=== PATIENT | female | born 2000 | race Caucasian/White ===

== ENCOUNTER → 2022-11-13 08:39 | Outpatient (BNVA) | payer OTHER, SELFPAY | PROVIDERS: PCP Family Medicine; Referring Provider Family Medicine; Visit Provider Nurse Practitioner Women's Health | DX: R10.2 Pelvic and perineal pain (principal); Z12.4 Encounter for screening for malignant neoplasm of cervix | CPT/HCPCS: 84315; 88175 ==

== ENCOUNTER 2023-04-19 09:20 | Emergency (ER) | payer OTHER, SELFPAY ==
[2023-04-19 09:35] VITALS: BP 151/101; PULSE 109; RESP 16; TEMP 37.3; O2SAT 98
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
[2023-04-19] MEDS: ondansetron 4 MG Tablet 8 MG PO (10:08)
[2023-04-19 10:21] VITALS: BP 139/84; PULSE 109; O2SAT 98
== END 2023-04-19 11:15 | disposition home or self-care (01) ==
PROVIDERS: Emergency Provider Emergency Medicine; PCP Family Medicine
DX: S06.0X0A Concussion without loss of consciousness, initial encounter (principal); Y04.2XXA Assault by strike against or bumped into by another person, initial encounter; Y92.239 Unspecified place in hospital as the place of occurrence of the external cause; Y99.0 Civilian activity done for income or pay
CPT/HCPCS: 70450; 70486; 72125; 99284; Q0162

== ENCOUNTER → 2023-12-18 13:25 | Outpatient (BNVA) | payer OTHER, SELFPAY | PROVIDERS: PCP Family Medicine; Visit Provider Podiatrist Foot & Ankle Surgery | DX: M79.672 Pain in left foot (principal); M76.822 Posterior tibial tendinitis, left leg; M72.2 Plantar fascial fibromatosis | CPT/HCPCS: 73630 ==

== ENCOUNTER 2024-02-23 14:00 | Outpatient (CLI) | payer OTHER, SELFPAY | END 2024-02-23 14:01 | disposition home or self-care (01) | LOC: SLEEP 03-09 10:12 | PROVIDERS: PCP Family Medicine; Visit Provider Family Medicine | DX: G47.10 Hypersomnia, unspecified (principal) | CPT/HCPCS: G0399 ==

== ENCOUNTER 2024-04-07 21:10 | Emergency (ER) | payer OTHER, SELFPAY ==
[2024-04-07 21:12] VITALS: BP 139/87; PULSE 91; RESP 24; TEMP 36.9; O2SAT 99; BMI 42.7
--- NOTE | 2024-04-07 21:17 | ECG_ITS ---
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 Measurements Intervals [place] Rate: 86 P: 54 GA: 158 QRS: 28 QRSD: 84 T: 59 QT: 356 QTc: 426 Interpretive Statements SINUS RHYTHM NONSPECIFIC T-WAVE ABNORMALITY No previous ECG available for comparison Electronically Signed On 04-08-2024 22:17:28 PERSONAL SERVICE REPRESENTATIVE by Nicko Abreu M.D. [email or web address]
--- NOTE | 2024-04-07 21:17 | XRR_ITS ---
PROCEDURE INFORMATION: Exam: XR Chest Exam date and time: 04/07/2024 9:39 PM Age: 23 years old Clinical indication: Shortness of breath; Additional info: SOB TECHNIQUE: Imaging protocol: Radiologic exam of the chest. Views: 1 view. COMPARISON: CT cervical spin wo con* [id number] 04/19/2023 9:57 AM FINDINGS: Lungs: Clear. No consolidation. Pleural spaces: No significant pleural effusion. No pneumothorax. Heart/Mediastinum: Within normal limits. No cardiomegaly. Bones/joints: Intact. Other findings: None. XR/XR chest 1V portable [id number] IMPRESSION: No acute findings.
--- NOTE | 2024-04-07 21:18 | W.ED.URI ---
HPI - URI/Sore Throat General: Chief Complaint: Upper Respiratory Infection Stated Complaint: resp distress Time Seen by Provider: 04/07/24 21:12 Source: patient Mode of arrival: EMS Limitations: no limitations History of Present Illness: Patient is a 23-year-old female presents to ED today via EMS after she called them complaining of shortness of breath. She reportedly has a history of asthma. Patient tells me I am sick . She tells me she has had cough and congestion as well as chills and body aches over the past several days. She reportedly tested negative for flu and COVID. She reportedly was given dexamethasone and breathing treatments in row. Upon arrival her vital signs are completely normal. She is hyperventilating/anxious. States her hands and feet are numb. Her lung sounds are completely clear. MD elicited complaint: other (sob) Onset (ago): hour(s) Severity: mild Description of mucous: clear Able to tolerate fluids by mouth: Yes Associated symptoms: Reports chills, chest pain and nasal congestion; Deny abdominal pain, diarrhea, fever(s), headache(s), nausea or vomiting Treatments prior to arrival: other (EMS administered steroids/breathing treatments) Related Data Home Medications ?Medication ?Instructions ?Recorded ?Confirmed acetaminophen 325 mg capsule 325 mg PO QID PRN 11/13/22 03/29/24 (Tylenol) albuterol sulfate 90 mcg/actuation 2 puff inhalation Q6H PRN 11/13/22 03/29/24 aerosol inhaler ibuprofen 200 mg capsule 200 mg PO Q6H PRN 11/13/22 03/29/24 melatonin 10 mg capsule 10 mg PO DAILY 11/13/22 03/29/24 promethazine 25 mg tablet 25 mg PO Q6H PRN 02/26/23 03/29/24 topiramate 25 mg sprinkle capsule 25 mg PO DAILY 02/26/23 03/29/24 (Topamax) Previous Rx's ?Medication ?Instructions ?Recorded segesterone acet 0.15 mg-ethinyl 1 vag ring vaginal ONCE #1 ea 01/22/23 estradiol 0.013 mg/24 hr vaginal ring diclofenac potassium 50 mg tablet 50 mg PO BID PRN pain #20 tabs 04/19/23 ondansetron 8 mg disintegrating 8 mg PO .q6 PRN nausea and 04/19/23 tablet vomiting #14 tabs cyclobenzaprine 10 mg tablet 10 mg PO BID PRN muscle spasm #14 04/22/23 tabs diaphragms, contoured 65 mm-80 mm #1 ea 03/22/24 vaginal (Caya Contoured) metronidazole 0.75 % topical gel 1 applic topical DAILY 5 days #45 03/22/24 grams albuterol sulfate 1.25 mg/3 mL 1.25 mg (3 mL) inhalation Q4H PRN 04/07/24 solution for nebulization shortness of breath or wheezing #75 mL Allergies Allergy/AdvReac Type Severity Reaction Status Date / Time codeine Allergy Mild ADR-Halluci Verified 04/07/24 21:27 nating hydrocodone Allergy Mild ADR-Halluci Verified 04/07/24 21:27 nating latex Allergy Mild ADR-Itching Verified 04/07/24 21:27 oxycodone Allergy Mild ADR-Halluci Verified 04/07/24 21:27 nating Review of Systems Const: Reports: chills and body aches; Denies: fever(s), fatigue or malaise ENMT: Reports: nasal discharge and nasal congestion Card: Reports: chest pain; Denies: palpitations, irregular heart rhythm, edema, swelling of feet/ankles, lightheadedness, syncope, pre-syncope, dyspnea on exertion, orthopnea, leg pain with exertion or acrocyanosis Resp: Reports: dyspnea, non-productive cough and chest congestion GI: Denies: abdominal pain, nausea, vomiting or diarrhea : Denies: flank pain or dysuria Musc: Denies: neck pain, back pain, extremity pain or joint swelling Skin/Breast: Denies: rash Neuro: Denies: headache(s), numbness in extremities, weakness in extremities, sensory changes or dizziness PFS ED PFSH: Medical History Contusion of right lower arm Family History Denies family history of Cervical cancer Ovarian cancer Diabetes Breast cancer Hypertension Uterine cancer Stroke Social History Smoking and tobacco/nicotine status: unknown if used tobacco/nicotine Physical Exam Const: COMMON NORMALS: patient oriented x3, no limitations, alert and well nourished GENERAL APPEARANCE: cooperative NUTRITIONAL APPEARANCE: obese morbidly obese (BMI 42.7) OTHER: hyperventilating HENMT: COMMON NORMALS: normocephalic and atraumatic HEAD & SCALP: normal to inspection, normocephalic and atraumatic FACE & SINUS: normal facial exam Eye: GENERAL EYE: appearance normal, both eyes and all related structures Neck/C-Spine: COMMON NORMALS: full ROM, no lymphadenopathy and no meningeal signs GENERAL: Yes normal visual inspection, No anterior neck swelling and No submandibular swelling Resp: COMMON NORMALS: normal respiratory effort, No retractions, No use of accessory muscles and clear to auscultation bilaterally EFFORT & INSPECTION: Yes tachypneic, No respiratory distress, No labored, No grunting, No stridor, No Actively coughing and No retractions AUSCULTATION: clear to auscultation bilaterally Cardio: COMMON NORMALS: regular rate and regular rhythm RATE: regular rate RHYTHM: regular rhythm Back/Pelvis: COMMON NORMALS: thoracic and lumbar spine normal to inspection and no thoracic nor lumbar tenderness Extremity: GENERAL: Yes normal exam except as noted Neuro: COMMON NORMALS: patient oriented x3, moves all extremities, no focal motor deficits and no sensory deficits noted SENSORIUM/ORIENTATION: Yes alert MENINGEAL SIGNS: Yes no meningeal signs Skin: COMMON NORMALS: no rashes or lesions noted GENERAL SKIN EXAM: no rashes or lesions noted Course Vital Signs: Vital signs: Vital Signs Temperature 98.4 F 04/07/24 21:12 Pulse Rate 91 04/07/24 21:12 Respiratory Rate 24 H 04/07/24 21:12 Blood Pressure 139/87 04/07/24 21:12 Pulse Oximetry 99 04/07/24 21:12 Oxygen Delivery Me thod Room Air 04/07/24 21:12 MDM - URI/Sore Throat Medical Decision Making Patient clinically appears improved during re-examination. Her vitals have remained stable. Her CXR is unremarkable. She was positive for influenza A. She is outside the window for Tamiflu. Discussed conservative therapies at home. She is requesting a refill of her albuterol vials for her nebulizer. This will be provided. Return to ED precautions discussed. Medical Records I reviewed the patient's medical records. Lab Data I reviewed the patient's lab results. Radiology Impressions Chest X-Ray 04/07/24 21:17 IMPRESSION: No acute findings. Laboratory Results Coronavirus (PCR) Negative (Negative) 04/07/24 21:41 Influenza A (PCR) Positive (Negative) 04/07/24 21:41 Influenza Type B (PCR) Negative (Negative) 04/07/24 21:41 RSV (PCR) Negative (Negative) 04/07/24 21:41 All radiology interpretation(s) finalized by discharge Discharge Plan Discharge Patient Disposition: Home Clinical Impression: Influenza A Condition: Stable Prescriptions: New albuterol sulfate 1.25 mg/3 mL solution for nebulization 1.25 mg inhalation Q4H PRN (Reason: shortness of breath or wheezing) Qty: 75 0RF No Action promethazine 25 mg tablet 25 mg PO Q6H PRN topiramate [Topamax] 25 mg capsule, sprinkle 25 mg PO DAILY acetaminophen [Tylenol] 325 mg capsule 325 mg PO QID PRN ibuprofen 200 mg capsule 200 mg PO Q6H PRN melatonin 10 mg capsule 10 mg PO DAILY Patient Comments: at night albuterol sulfate 90 mcg/actuation HFA aerosol inhaler 2 puff inhalation Q6H PRN metronidazole 0.75 % gel 1 applic topical DAILY 5 Days Qty: 45 1RF Rx Instructions: insert pea size intravaginally amount nightly (DME) Caya Contoured 65-80 mm diaphragm See Rx Instructions .Route Qty: 1 0RF Rx Instructions: As directed cyclobenzaprine 10 mg tablet 10 mg PO BID PRN (Reason: muscle spasm) Qty: 14 0RF segesterone ac-ethin estradiol 0.15-0.013 mg/24 hour ring 1 vag ring vaginal ONCE Qty: 1 0RF Rx Instructions: use as directed ondansetron 8 mg tablet,disintegrating 8 mg PO .q6 PRN (Reason: nausea and vomiting) Qty: 14 0RF diclofenac potassium 50 mg tablet 50 mg PO BID PRN (Reason: pain) Qty: 20 0RF Discharge Orders: Discharge ED (Routine); Ordered 04/07/24 Ordered By: Renata Obregon Referrals: Bob Callaway MD [Primary Care Provider] - Patient Instructions: Influenza (DC) Activity Restrictions/Additional Instructions: As we discussed you are positive for influenza A. Your chest x-ray was unremarkable. Your vital signs have been normal. As we discussed, you are outside the window for any benefit from Tamiflu. I have sent a prescription for Albuterol vials for your nebulizers into your pharmacy on file as you have requested. We discussed conservative therapies including Tylenol/Motrin, rest, and hydration. I hope you begin to feel better soon. Print Language: Syriac Coding Level of Care Code ED Sugar Chipper Machine Operator for Adina Brooks
[2024-04-07 22:27] VITALS: BP 123/72; PULSE 84; O2SAT 99
[2024-04-07 22:30] VITALS: BP 116/84; PULSE 94; O2SAT 96
[2024-04-07 22:33] LABS: Covid PCR NEGATIVE (Negative); Influenza A POSITIVE (Negative); Influenza B NEGATIVE (Negative); Respiratory Syncytial Virus Ce NEGATIVE (Negative)
[2024-04-07 23:07] VITALS: BP 116/84; PULSE 92; O2SAT 97
== END 2024-04-07 22:50 | disposition home or self-care (01) ==
PROVIDERS: Emergency Provider Physician Assistant; PCP Family Medicine
DX: J10.1 Influenza due to other identified influenza virus with other respiratory manifestations (principal); Z11.52 Encounter for screening for COVID-19
CPT/HCPCS: 71045; 87637; 93005; 99284

== ENCOUNTER → 2024-04-13 13:26 | Outpatient (BNVA) | payer OTHER, SELFPAY | PROVIDERS: PCP Family Medicine; Visit Provider Nurse Practitioner Women's Health | DX: N92.6 Irregular menstruation, unspecified (principal); N83.8 Other noninflammatory disorders of ovary, fallopian tube and broad ligament; N83.202 Unspecified ovarian cyst, left side; N83.201 Unspecified ovarian cyst, right side | CPT/HCPCS: 76830 ==

== ENCOUNTER 2024-05-04 07:44 | Outpatient (CLI) | payer OTHER, SELFPAY ==
[2024-05-04 08:11] LABS: Basophils # 0.1 10^3/uL (0.0-0.1); Basophils % 0.7 %; Eosinophils # 0.1 10^3/uL (0.0-0.8); Eosinophils % 1.6 %; Lymphocytes # 2.2 10^3/uL (0.8-4.8); Lymphocytes % 28.5 %; Mean Corpuscular HGB Conc 34.4 g/dL (30-55); Mean Corpuscular Hemoglobin 30.3 pg (27-33); Mean Corpuscular Volume 88.2 fl (85-98); Mean Platelet Volume 9.8 fL (7.4-10.4); Monocytes # 0.5 10^3/uL (0.2-0.9); Monocytes % 6.2 %; Neutrophils # 4.74 10^3/uL (1.8-7.7); Neutrophils % 62.7 %; Nucleated Red Blood Cells % 0 %; Platelet Count 308 10^3/cmm (157-399); Red Blood Count 4.42 10^6/uL (3.85-5.65); Red Cell Distribution Width 13.5 % (12.1-15.1); White Blood Count 7.55 10^3/uL (3.29-11.43)
[2024-05-04 08:34] LABS: Alanine Aminotransferase 33 U/L (0-33); Albumin Level 4.5 g/dL (3.5-5.2); Alkaline Phosphatase 72 U/L (35-105); Anion Gap 15.9 (5-19); Aspartate Amino Transferase 18 U/L (0-32); Blood Urea Nitrogen 15 mg/dL (6-20); Calcium 9.2 mg/dL (8.5-10.5); Carbon Dioxide 21 mmol/L (22-29); Chloride 108 mmol/L (98-107); Globulin 2.8 g/dL (1.3-4.6); Glomerular Filtration Rate 87.4 mL/min (90-130); Glucose 108 mg/dL (65-115); Osmolality Calculated 293 mOsm/kg (285-295); Potassium 3.9 mmol/L (3.5-5.1); Sodium 141 mmol/L (136-145); Total Bilirubin 0.2 mg/dL (0.15-1.2); Total Protein 7.3 g/dL (6.6-8.7)
== END 2024-05-04 07:45 | disposition home or self-care (01) ==
LOC: LAB 07:46
PROVIDERS: PCP Family Medicine; Visit Provider Surgery
DX: R10.9 Unspecified abdominal pain (principal); R19.7 Diarrhea, unspecified; K59.09 Other constipation; Z51.81 Encounter for therapeutic drug level monitoring; Z79.1 Long term (current) use of non-steroidal anti-inflammatories (NSAID)
CPT/HCPCS: 36415; 80048; 80076; 82274; 83630; 83993; 85025; 86003; 86008; 87177; 87209

== ENCOUNTER 2024-05-27 08:56 | Day surgery (SDC) | payer OTHER, SELFPAY ==
[2024-05-27 09:19] VITALS: BP 130/83; PULSE 97; RESP 17; TEMP 36.1; O2SAT 96; BMI 41.0
--- NOTE | 2024-05-27 09:19 | W.PM.OPSFHP ---
Same Day Surgery H&P Indication for Procedure/HPI DATE OF PROCEDURE: May 27, 2024 CHIEF COMPLAINT/INDICATIONFOR SURGICAL PROCEDURE: abdominal pain and changes in BM PREOP DIAGNOSIS: abdominal pain and changes in BM PLANNED PROCEDURE: Operation Date: 05/27/24 10:10 Proposed Procedures p [id number] K21.9 K52.9(Not Applicable) - Aaron Zepeda MD s Colonoscopy(Not Applicable) - Aaron Zepeda MD Medications/Allergies* Home Medications ?Medication ?Instructions ?Recorded ?Confirmed ?Type acetaminophen 325 mg capsule 325 mg PO QID PRN pain or fever 11/13/22 05/24/24 History (Tylenol) albuterol sulfate 90 mcg/actuation 2 puff inhalation Q6H PRN 11/13/22 05/24/24 History aerosol inhaler Shortness Of Breath ibuprofen 200 mg capsule 200 mg PO Q6H PRN pain or fever 11/13/22 05/24/24 History promethazine 25 mg tablet 25 mg PO Q6H PRN Nausea And 02/26/23 05/24/24 History Vomiting topiramate 25 mg sprinkle capsule 50 mg PO DAILY 02/26/23 05/24/24 History (Topamax) famotidine 20 mg tablet 40 mg PO DAILY 04/26/24 05/24/24 History hydroxyzine HCl 50 mg tablet 50 mg PO QID PRN Anxiety 04/26/24 05/24/24 History prazosin 1 mg capsule 1 mg PO DAILY 04/26/24 05/24/24 History trazodone 50 mg tablet 50 mg PO DAILY 04/26/24 05/24/24 History venlafaxine 225 mg tablet,extended 225 mg PO DAILY 04/26/24 05/24/24 History release 24 hr metronidazole 0.75 % topical gel 1 applic topical DAILY 05/24/24 05/24/24 History ([place]) Allergies/Adverse Reactions Allergy/AdvReac Type Severity Reaction Status Date / Time codeine Allergy Mild ADR-Halluci Verified 05/27/24 09:11 nating hydrocodone Allergy Mild ADR-Halluci Verified 05/27/24 09:11 nating latex Allergy Mild ADR-Itching Verified 05/27/24 09:11 oxycodone Allergy Mild ADR-Halluci Verified 05/27/24 09:11 nating walnut Allergy oral sores Verified 05/27/24 09:11 Pertinent History/Comorbid Conditions* Medical History (Updated 04/26/24 @ 09:23 by Caryl Dunham NP) Contusion of right lower arm Family History (Updated 11/27/22 @ 08:25 by Citlalli Medellin CMA) Denies family history of Cervical cancer Ovarian cancer Diabetes Breast cancer Hypertension Uterine cancer Stroke Social History Smoking and tobacco/nicotine status: never used tobacco/nicotine Alcohol intake: never Pertinent Exam Findings alert, oriented x 3, clear to auscultation bilaterally and regular rate & rhythm Recommendations Surgery/Procedure today Coding Level of Care Code Acute Code for Chg Fwd
--- NOTE | 2024-05-27 09:25 | ANES.PREANE2 ---
Pre-Anesthetic Assessment Height/Weight: Height 5 ft 1 in Preop Diagnosis: abdominal pain and changes in BM Operation Date: 05/27/24 10:10 Proposed Procedures p [id number] K21.9 K52.9(Not Applicable) - Aaron Zepeda MD s Colonoscopy(Not Applicable) - Aaron Zepeda MD Was Beta Hansa taken within 24 hours: N/A Was Clonidine taken within 24 hours: N/A Social No alcohol and No tobacco Exam alert, oriented x 3, clear to auscultation bilaterally and regular rate & rhythm Airway Submandibular: within normal limits Cervical ROM: within normal limits Mallampati: Class II Dentition: full Anesthetic Plan ASA status: 3 Anesthesia: General Other: No prior issues with anesthesia Completed bowel prep History of asthma, occasional rescue inhaler BMI 41 Labs 05/04/2024 reviewed acceptable for procedure EKG sinus rhythm with nonspecific T wave abnormality METs greater than 4 Plan for MAC anesthesia Medications/Allergies Home Medications ?Medication ?Instructions ?Recorded ?Confirmed ?Last Taken ?Type acetaminophen 325 mg capsule 325 mg PO QID PRN pain or fever 11/13/22 05/27/24 05/26/24 History (Tylenol) albuterol sulfate 90 mcg/actuation 2 puff inhalation Q6H PRN 11/13/22 05/27/24 Unknown History aerosol inhaler Shortness Of Breath ibuprofen 200 mg capsule 200 mg PO Q6H PRN pain or fever 11/13/22 05/27/24 Unknown History promethazine 25 mg tablet 25 mg PO Q6H PRN Nausea And 02/26/23 05/27/24 05/26/24 History Vomiting topiramate 25 mg sprinkle capsule 50 mg PO DAILY 02/26/23 05/27/24 05/26/24 History (Topamax) diaphragms, contoured 65 mm-80 mm #1 ea 03/22/24 04/27/24 Unknown Rx vaginal (Caya Contoured) albuterol sulfate 1.25 mg/3 mL 1.25 mg (3 mL) inhalation Q4H PRN 04/07/24 05/27/24 Unknown Rx solution for nebulization shortness of breath or wheezing #75 mL famotidine 20 mg tablet 40 mg PO DAILY 04/26/24 05/27/24 05/26/24 History hydroxyzine HCl 50 mg tablet 50 mg PO QID PRN Anxiety 04/26/24 05/27/24 05/26/24 History prazosin 1 mg capsule 1 mg PO DAILY 04/26/24 05/27/24 05/26/24 History trazodone 50 mg tablet 50 mg PO DAILY 04/26/24 05/27/24 05/26/24 History venlafaxine 225 mg tablet,extended 225 mg PO DAILY 04/26/24 05/27/24 05/26/24 History release 24 hr polyethylene glycol 3350 17 17 g PO DAILY 30 days #238 grams 04/27/24 05/27/24 05/24/24 Rx gram/dose oral powder (Miralax) metronidazole 0.75 % topical gel 1 applic topical DAILY 05/24/24 05/27/24 Unknown History (Rosadan) Allergies Allergy/AdvReac Type Severity Reaction Status Date / Time codeine Allergy Mild ADR-Halluci Verified 05/27/24 09:11 nating hydrocodone Allergy Mild ADR-Halluci Verified 05/27/24 09:11 nating latex Allergy Mild ADR-Itching Verified 05/27/24 09:11 oxycodone Allergy Mild ADR-Halluci Verified 05/27/24 09:11 nating walnut Allergy oral sores Verified 05/27/24 09:11 [facility] Anesthesia Medical History Contusion of right lower arm Family History Denies family history of Cervical cancer Ovarian cancer Diabetes Breast cancer Hypertension Uterine cancer Stroke Social History (Updated 04/27/24 @ 07:54 by NIKO Del Rosario) Smoking and tobacco/nicotine status: never used tobacco/nicotine Alcohol intake: never Data Anesthesia Cardiac Studies: No Data to Display
[2024-05-27 09:27] LABS: OR HCG Qualitative Urine Negative (Negative)
[2024-05-27] MEDS: sodium chloride 0.9% 1,000 ML 30 ML IV (09:28)
[2024-05-27 10:58] VITALS: BP 95/58; PULSE 70; RESP 18; TEMP 36.1; O2SAT 97
[2024-05-27 11:32] VITALS: BP 126/81; PULSE 78; RESP 18; O2SAT 98
--- NOTE | 2024-05-27 11:36 | ANE.PACU2 ---
Inpatient post-anesthesia follow up: Airway intact: Yes Vital signs: Temperature 97.0 F Pulse Rate 78 Respiratory Rate 18 Blood Pressure 126/81 Pulse Oximetry 98 Oxygen Delivery Me thod Room Air Oxygen Flow Rate Fraction of Inspir ed Oxygen Hydration adequate: Yes Nausea and vomiting: No Pain level: 1 Mental status: Baseline
== END 2024-05-27 11:36 | disposition home or self-care (01) ==
PROVIDERS: Student in an Organized Health Care Education/Training Program; PCP Family Medicine; Visit Provider Surgery
PROC: 0DJ08ZZ Inspection of Upper Intestinal Tract, Via Natural or Artificial Opening Endoscopic (ICD-10-PCS; principal; 2024-05-27 10:10)
PROC: 0DJD8ZZ Inspection of Lower Intestinal Tract, Via Natural or Artificial Opening Endoscopic (ICD-10-PCS; CPT 45378; 2024-05-27 10:10)
DX: K29.00 Acute gastritis without bleeding (principal); K21.00 Gastro-esophageal reflux disease with esophagitis, without bleeding; K52.9 Noninfective gastroenteritis and colitis, unspecified; Z79.899 Other long term (current) drug therapy; Z88.5 Allergy status to narcotic agent; Z91.040 Latex allergy status
CPT/HCPCS: 43239; 45380; 81025; 88305; J2704; J7030; J9999

== ENCOUNTER 2024-08-02 17:06 | Emergency (ER) | payer OTHER, SELFPAY ==
[2024-08-02] VITALS (7 sets, daily range): BP systolic 108–145; BP diastolic 66–80; PULSE 73–99; RESP 16; TEMP 36.9; O2SAT 96–100; BMI 41.5
[2024-08-02] MEDS: ondansetron 2 mg/ML SDV 2 mL 4 MG IVP (19:36)
[2024-08-02] MEDS: sodium chloride 0.9% 1,000 ML 999 ML IV (19:36)
--- NOTE | 2024-08-02 19:48 | ECG_ITS ---
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 Measurements Intervals Arena Rate: 79 P: 7 WI: 141 QRS: 21 QRSD: 85 T: 8 QT: 387 QTc: 446 Interpretive Statements SINUS RHYTHM LOW QRS VOLTAGE IN PRECORDIAL LEADS [QRS DEFLECTION < 1.0 mV IN CHEST LEADS] Compared to ECG 04/07/2024 21:43:00 Low QRS voltage now present T-wave abnormality no longer present Electronically Signed On 08-03-2024 11:35:27 CDT by Nicko Abreu M.D. [email or web address]
[2024-08-02 19:57] LABS: Basophils # 0.1 10^3/uL (0.0-0.1); Basophils % 0.5 %; Eosinophils # 0.1 10^3/uL (0.0-0.8); Eosinophils % 0.5 %; Hematocrit 44.7 % (36-47); Lymphocytes % 23.3 %; Mean Corpuscular HGB Conc 32.2 g/dL (30-55); Mean Corpuscular Hemoglobin 29.3 pg (27-33); Monocytes # 0.8 10^3/uL (0.2-0.9); Monocytes % 5.8 %; Neutrophils # 9.08 10^3/uL (1.8-7.7); Neutrophils % 69.5 %; Nucleated Red Blood Cells % 0 %; Platelet Count 364 10^3/cmm (157-399); Red Blood Count 4.91 10^6/uL (3.85-5.65); Red Cell Distribution Width 13.4 % (12.1-15.1); White Blood Count 13.04 10^3/uL (3.29-11.43)
--- NOTE | 2024-08-02 20:10 | W.ED.DIZZY ---
HPI - Dizziness General: Chief Complaint: Dizziness Stated Complaint: nausea, lightheaded x4days, unbalanced, dizzy Time Seen by Provider: 08/02/24 19:31 History of Present Illness: HPI Narrative: Patient is a generally well-appearing 23-year-old female seen for 3 days of lightheadedness and nausea which appear to be worse with motion of the head. She denies antecedent upper respiratory infection, sinus pressure, ear pain, nasal congestion, or cough. She has had similar symptoms in the past which got better with meclizine and her primary care gave her meclizine but they did not help this time. There are no other sick contacts at home. She states that she has tried to stay well-hydrated but is hard to do so when she feels nauseated all the time. She has not lost consciousness nor has she vomited. She denies abdominal pain in excess of her normal pain that she feels with IBS. She denies dysuria, frequency, diarrhea, constipation, and states that she had a period last week and does not feel that she is . She was prompted to come to the emergency department when meclizine failed and primary care asked her to come be evaluated. She has no history of cardiac disease of which she is aware. Related Data Home Medications ?Medication ?Instructions ?Recorded ?Confirmed acetaminophen 325 mg capsule 325 mg PO QID PRN pain or fever 11/13/22 05/27/24 (Tylenol) albuterol sulfate 90 mcg/actuation 2 puff inhalation Q6H PRN 11/13/22 05/27/24 aerosol inhaler Shortness Of Breath promethazine 25 mg tablet 25 mg PO Q6H PRN Nausea And 02/26/23 05/27/24 Vomiting topiramate 25 mg sprinkle capsule 50 mg PO DAILY 02/26/23 05/27/24 (Topamax) hydroxyzine HCl 50 mg tablet 50 mg PO QID PRN Anxiety 04/26/24 05/27/24 prazosin 1 mg capsule 1 mg PO DAILY 04/26/24 05/27/24 trazodone 50 mg tablet 50 mg PO DAILY 04/26/24 05/27/24 venlafaxine 225 mg tablet,extended 225 mg PO DAILY 04/26/24 05/27/24 release 24 hr metronidazole 0.75 % topical gel 1 applic topical DAILY 05/24/24 05/27/24 (Rosadan) Previous Rx's ?Medication ?Instructions ?Recorded diaphragms, contoured 65 mm-80 mm #1 ea 03/22/24 vaginal (Caya Contoured) albuterol sulfate 1.25 mg/3 mL 1.25 mg (3 mL) inhalation Q4H PRN 04/07/24 solution for nebulization shortness of breath or wheezing #75 mL polyethylene glycol 3350 17 17 g PO DAILY 30 days #238 grams 04/27/24 gram/dose oral powder (Miralax) pantoprazole 40 mg tablet,delayed 40 mg PO BID #60 tabs 05/27/24 release diazepam 2 mg tablet (Valium) 1 mg (1/2 x 2 mg) PO TID PRN 08/02/24 dizziness #14 tabs Allergies Allergy/AdvReac Type Severity Reaction Status Date / Time codeine Allergy Mild ADR-Halluci Verified 05/27/24 09:11 nating hydrocodone Allergy Mild ADR-Halluci Verified 05/27/24 09:11 nating latex Allergy Mild ADR-Itching Verified 05/27/24 09:11 oxycodone Allergy Mild ADR-Halluci Verified 05/27/24 09:11 nating walnut Allergy oral sores Verified 05/27/24 09:11 [facility] ED PFSH: Medical History Contusion of right lower arm Family History Denies family history of Cervical cancer Ovarian cancer Diabetes Breast cancer Hypertension Uterine cancer Stroke Social History (Updated 04/27/24 @ 07:54 by NIKO Del Rosario) Smoking and tobacco/nicotine status: never used tobacco/nicotine Alcohol intake: never Physical Exam Const: COMMON NORMALS: no acute distress, patient oriented x3 and alert HENMT: OTHER: Normal inspection of the ears, nose, and throat. Dizziness is significantly worse with any motion of the head or eyes. Dizziness fatigues rapidly when she stops moving her head and closes her eyes Eye: COMMON NORMALS: Equal, round and reactive pupils present, EOMs intact bilaterally and no scleral icterus PUPIL: Yes Equal, round and reactive pupils present Resp: COMMON NORMALS: normal respiratory effort and No retractions Cardio: COMMON NORMALS: regular rate, regular rhythm and No murmurs present (Cardio) RATE: regular rate RHYTHM: regular rhythm GI: COMMON NORMALS: Normal to inspection, nondistended, normoactive bowel sounds present, Soft to palpation and non-tender PALPATION: Yes Soft to palpation Neuro: COMMON NORMALS: patient oriented x3 SENSORIUM/ORIENTATION: Yes alert Skin: COMMON NORMALS: no rashes or lesions noted GENERAL SKIN EXAM: no rashes or lesions noted Course Vital Signs: Vital signs: Vital Signs Temperature 98.4 F 08/02/24 17:14 Pulse Rate 81 08/02/24 23:53 Respiratory Rate 16 08/02/24 17:14 Blood Pressure 119/73 08/02/24 23:53 Pulse Oximetry 98 08/02/24 23:53 Oxygen Delivery Me thod Room Air 08/02/24 22:00 MDM - Dizziness Medical Decision Making Patient remained hemodynamically stable 30 course. EKG and labs are reassuring. Valium made her very sleepy but also considerably improved her BPPV symptoms. She is now able to walk without difficulty. I do not suspect central etiology to her dizziness nor I feel imaging would be beneficial at this time. She will be given a very short course of Valium for home and several days off of work. She shows good understanding and agrees to the plan and will be discharged in stable condition Lab Data 08/02/24 19:31 08/02/24 20:23 Laboratory Results WBC 13.04 10^3/uL (3.29-11.43) H 08/02/24 19:31 RBC 4.91 10^6/uL (3.85-5.65) 08/02/24 19:31 Hgb 14.40 g/dL (11.27-16.99) 08/02/24 19:31 Hct 44.7 % (36-47) 08/02/24 19:31 MCV 91.0 fl (85-98) 08/02/24 19:31 MCH 29.3 pg (27-33) 08/02/24 19:31 MCHC 32.2 g/dL (30-55) 08/02/24 19:31 RDW 13.4 % (12.1-15.1) 08/02/24 19:31 Plt Count 364 10^3/cmm (157-399) 08/02/24 19:31 MPV 10.0 fL (7.4-10.4) 08/02/24 19:31 Neut % (Auto) 69.5 % 08/02/24 19:31 Lymph % (Auto) 23.3 % 08/02/24 19:31 Nuckolls % (Auto) 5.8 % 08/02/24 19: Eos % (Auto) 0.5 % 08/02/24 19: Baso % (Auto) 0.5 % 08/02/24 19: Neut # (Auto) 9.08 10^3/uL (1.8-7.7) H 08/02/24 19: Lymph # (Auto) 3.0 10^3/uL (0.8-4.8) 08/02/24 19: N[place]olls # (Auto) 0.8 10^3/uL (0.2-0.9) 08/02/24 19: Eos # (Auto) 0.1 10^3/uL (0.0-0.8) 08/02/24: Baso # (Auto) 0.1 10^3/uL (0.0-0.1) 08/02/24: Nucleated RBC % (auto) 0 % 08/02/24: Nucleated RBCs # 0.0 /100WBC 08/02/24 19: Sodium 139 mmol/L (136-145) 08/02/24 20:23 Potassium 4.0 mmol/L (3.5-5.1) 08/02/24 20:23 Chloride 108 mmol/L (98-107) H 08/02/24 20:23 Carbon Dioxide 21 mmol/L (22-29) L 08/02/24 20:23 Anion Gap 14.0 (5-19) 08/02/24 20:23 BUN 13 mg/dL (6-20) 08/02/24 20:23 Creatinine 0.7 mg/dL (0.5-0.9) 08/02/24 20:23 GFR Calculation 102.0 mL/min (90-130) 08/02/24 20:23 Glucose 82 mg/dL (65-115) 08/02/24 20:23 Calculated Osmolality 287 mOsm/kg (285-295) 08/02/24 20:23 Calcium 8.6 mg/dL (8.5-10.5) 08/02/24 20:23 Total Bilirubin 0.2 mg/dL (0.15-1.2) 08/02/24 20:23 AST 23 U/L (0-32) 08/02/24 20:23 ALT 38 U/L (0-33) H 08/02/24 20:23 Alkaline Phosphatase 67 U/L (35-105) 08/02/24 20:23 Total Protein 7.1 g/dL (6.6-8.7) 08/02/24 20:23 Albumin 4.0 g/dL (3.5-5.2) 08/02/24 20:23 Globulin 3.1 g/dL (1.3-4.6) 08/02/24 20:23 Lipase 27 U/L (13-60) 08/02/24 20:23 HCG, Qual Negative (Negative) 08/02/24 20:23 Urine Color Yellow (Yellow) 08/02/24 19:31 Urine Appearance Clear (CLEAR) 08/02/24 19: Urine pH 6.0 (5-7) 08/02/24 19: Ur Specific [place] 1.021 (1.005-1.030) 08/02/24 19: Urine Protein Negative (Negative) 08/02/24 19: Urine Glucose (UA) Negative (Normal) 08/02/24 19: Urine Ketones Negative (Negative) 08/02/24 19: Urine Blood Negative (Negative) 08/02/24 19: Urine Nitrate Negative (Negative) 08/02/24 19: Urine Bilirubin Negative (Negative) 08/02/24 19: Urine Urobilinogen 0.2 mg/dL (Negative) 08/02/24 19: Ur Leukocyte Esterase Negative (Negative) 08/02/24 19: Urine RBC 0-2 /hpf (0-2) 08/02/24 19: Urine WBC 0-5 /hpf (0-5) 08/02/24 19: Ur Squamous Epith Cells 0-5 /hpf (0-5) 08/02/24 19:31 Amorphous Sediment Not Reportable 08/02/24 19: Urine Bacteria 1+ /hpf (NONE) H 08/02/24 19:31 Hyaline Casts 0.40 /lpf 08/02/24 19:31 No radiology studies performed this visit EKG Data EKG 1: Interpretation: Time?1947?sinus rhythm, rate of 79, no ST segment elevation or depression, no T wave inversions, intervals within normal limits. QTc = 422. No delta wave, no Brugada, no Wellens, Discharge Plan Discharge Patient Disposition: Home Clinical Impression: Benign paroxysmal positional vertigo Condition: Stable Prescriptions: New diazepam [Valium] 2 mg tablet 1 mg PO TID PRN (Reason: dizziness) Qty: 14 0RF No Action promethazine 25 mg tablet 25 mg PO Q6H PRN (Reason: Nausea And Vomiting) topiramate [Topamax] 25 mg capsule, sprinkle 50 mg PO DAILY acetaminophen [Tylenol] 325 mg capsule 325 mg PO QID PRN (Reason: pain or fever) albuterol sulfate 90 mcg/actuation HFA aerosol inhaler 2 puff inhalation Q6H PRN (Reason: Shortness Of Breath) (DME) Caya Contoured 65-80 mm diaphragm See Rx Instructions .Route Qty: 1 0RF Rx Instructions: As directed venlafaxine 225 mg tablet extended release 24hr 225 mg PO DAILY prazosin 1 mg capsule 1 mg PO DAILY trazodone 50 mg tablet 50 mg PO DAILY hydroxyzine HCl 50 mg tablet 50 mg PO QID PRN (Reason: Anxiety) polyethylene glycol 3350 [Miralax] 17 gram/dose powder 17 g PO DAILY 30 Days Qty: 238 0RF albuterol sulfate 1.25 mg/3 mL solution for nebulization 1.25 mg inhalation Q4H PRN (Reason: shortness of breath or wheezing) Qty: 75 0RF metronidazole [Rosadan] 0.75 % gel 1 applic topical DAILY Rx Instructions: insert pea size intravaginally amount nightly pantoprazole 40 mg tablet,delayed release (DR/EC) 40 mg PO BID Qty: 60 3RF Discharge Orders: Discharge ED (Routine); Ordered 08/02/24 Ordered By: Giovanny Dominguez Referrals: Bob Callaway MD [Primary Care Provider, Family Practice] Discharge Diet: Advance as tolerated Discharge Activity: Increase activity as tolerated Patient Instructions: Benign Paroxysmal Positional Vertigo (ED) Stand Alone Forms: Work/School Release Print Language: Palauan Coding Level of Care Code ED Acid Remover for Chg Fwd
[2024-08-02] MEDS: diazePAM 5 mg Tablet PO (20:13)
[2024-08-02 20:17] LABS: Bilirubin Urine Negative (Negative); Blood Urine Negative (Negative); Glucose Urine UA Negative (Normal); Ketones Urine Negative (Negative); Leukocyte Esterase Urine Negative (Negative); Nitrate Urine Negative (Negative); Protein Urine Negative (Negative); Specific Gravity, Urine 1.021 (1.005-1.030); Urine Appearance Clear (CLEAR); Urine Color Yellow (Yellow); Urobilinogen Urine 0.2 mg/dL (Negative)
[2024-08-02 20:22] LABS: Bacteria Urine 1+ /hpf; RBC Urine 0-2 /hpf (0-2); Squamous Epithelial Cell Urine 0-5 /hpf (0-5); WBC Urine 0-5 /hpf (0-5)
[2024-08-02 20:37] LABS: HCG, Serum Qual Negative (Negative)
[2024-08-02 20:44] LABS: Alanine Aminotransferase 38 U/L (0-33); Alkaline Phosphatase 67 U/L (35-105); Aspartate Amino Transferase 23 U/L (0-32); Blood Urea Nitrogen 13 mg/dL (6-20); Calcium 8.6 mg/dL (8.5-10.5); Carbon Dioxide 21 mmol/L (22-29); Chloride 108 mmol/L (98-107); Creatinine Clr Calc Pharmacy 133.0409; Globulin 3.1 g/dL (1.3-4.6); Glucose 82 mg/dL (65-115); Lipase 27 U/L (13-60); Osmolality Calculated 287 mOsm/kg (285-295); Sodium 139 mmol/L (136-145); Total Bilirubin 0.2 mg/dL (0.15-1.2); Total Protein 7.1 g/dL (6.6-8.7)
== END 2024-08-02 23:54 | disposition home or self-care (01) ==
PROVIDERS: Emergency Medicine; Emergency Provider Student in an Organized Health Care Education/Training Program; PCP Family Medicine
DX: H81.10 Benign paroxysmal vertigo, unspecified ear (principal)
CPT/HCPCS: 80053; 81001; 83690; 84703; 85025; 93005; 96374; 99284; J2405; J7030; J9999